=== PATIENT | male | born 1975 | race American Indian/Alaskan Native ===

== ENCOUNTER 2020-03-09 06:15 | Emergency (ER) | payer OTHER ==
--- NOTE | 2020-03-09 06:40 | EDM.PDOC ---
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 He hit the top of his head against the banister. There was no loss of consciousness but he has some pain immediately. While he was walking away from that to go to another part of the plant he began to feel dizzy and developed a headache with some nausea. He also developed some posterior neck pain and pain between the scapula of his upper back as well. He has no arm or leg weakness. He has had no vomiting. The headache has almost resolved.he is rating the pain in his upper back as a 3- 4/10. It is a sore and sharp type pain that is worse with movement and with palpation. No vision problems. He presents here via private vehicle by the health safety and environment manager from [employer]. The patient reports that this occurred approximately 5:30 AM. There are no other associated signs or symptoms. There are no other modifying factors. 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 Restless leg syndrome) - Past Surgical History Other Surgical History Comment: Removal of neurofibroma from his left upper arm. Social & Family History - Tobacco Use Tobacco Use Status *Q: Current Every Day Tobacco User - Alcohol Use Alcohol Use History: Yes Alcohol Use in Last Twelve Months: No Alcohol Use Comment: No alcohol use for the past 19 years. - Living Situation & Occupation Occupation: Employed (Works at [employer].) ED ROS GENERAL - Review of Systems Review Of Systems: See Below Constitutional: Reports: No Symptoms HEENT: Reports: No Symptoms Respiratory: Reports: No Symptoms Cardiovascular: Reports: No Symptoms GI/Abdominal: Reports: Nausea Musculoskeletal: Reports: Neck Pain, Back Pain Neurological: Reports: Headache Psychiatric: Reports: No Symptoms Hematologic/Lymphatic: Reports: No Symptoms Immunologic: Reports: No Symptoms ED EXAM, HEAD INJURY - Physical Exam Exam: See Below Exam Limited By: No Limitations General Appearance: Alert, WD/WN, No Apparent Distress Head: Atraumatic, Normocephalic Nexus Criteria: Posterior, Midline Cervical Tenderness Eyes: Bilateral Eye: EOMI, Normal Inspection Ears: Normal External Exam, Hearing Grossly Normal Nose: Normal Inspection, Normal Mucousa, No Blood Throat/Mouth: Normal Inspection, Normal Oropharynx, Normal Voice, No Airway Compromise Neck: Full Range of Motion, Normal Alignment, Tenderness, Tender Midline Respiratory: No Respiratory Distress, Lungs Clear, Normal Breath Sounds, No Accessory Muscle Use, Chest Non-Tender Cardiovascular: Normal Peripheral Pulses, Regular Rate, Rhythm, No Murmur GI/Abdominal Exam: Normal Bowel Sounds, Soft, Non-Tender, No Mass Back Exam: Vertebral Tenderness (Between scapula. 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, No Motor/Sensory Deficits, Alert, Normal Mood/Affect, Oriented x 3 Skin: Normal Color, Warm/Dry - [place] Coma Score Best Eye Response ([place]): (4) Open Spontaneously Best Verbal Response ([place]): (5) Oriented Best Motor Response (Kris): (6) Obeys Commands Kris Total: 15 Course - Vital Signs Last Recorded V/S: Last Vital Signs Temp 37.1 C 03/09/20 06:20 Pulse 83 03/09/20 06:20 Resp 16 03/09/20 06:20 BP 129/83 03/09/20 06:20 Pulse Ox 95 03/09/20 06:20 - Orders/Labs/Meds Orders: Active Orders 24 hr Category Date Time Status Cervical Spine wo Cont [CT] Stat Exams 03/09/20 06:48 Ordered Head wo Cont [CT] Stat Exams 03/09/20 06:48 Ordered Thoracic Spine 3V [CR] Stat Exams 03/09/20 06:48 Ordered - Radiology Interpretation Free Text/Narrative:: CT scan of the head shows no acute abnormality per the [facility] radiologist. CT scan of the cervical spine shows no acute abnormality per the [facility] radiologist. Thoracic spine series shows no acute abnormality per the [facility] radiologist. - Re-Assessments/Exams Free Text/Narrative Re-Assessment/Exam: 03/09/20 07:40: Patient has remained vitally and neurologically stable. The CT scans of his head and cervical spine were negative and the x-ray of his thoracic spine was negative as well. He does appear to have a mild concussion. He has cervical and thoracic strains otherwise. He can use ibuprofen and Tylenol as needed for pain. No work until 03/10/2020. Departure - Departure Time of Disposition: 07:55 Disposition: Home, Self-Care 01 Condition: Good Clinical Impression: Strain of thoracic spine Head contusion Qualifiers: Encounter type: initial encounter Contusion of head detail: unspecified part of head Qualified Code(s): S00.93XA - Contusion of unspecified part of head, initial encounter Cervical strain Qualifiers: Encounter type: initial encounter Qualified Code(s): S16.1XXA - Strain of muscle, fascia and tendon at neck level, initial encounter Mild concussion Qualifiers: Encounter type: initial encounter Loss of consciousness presence/duration: without LOC Qualified Code(s): S06.0X0A - Concussion without loss of consciousness, initial encounter - Discharge Information Instructions: Head Injury, Adult, [id number], Concussion, Adult, [id number], Muscle Strain Forms: ED Department Discharge, ED Return to Work/School Form Additional Instructions: The CT scans of your head and neck showed no acute abnormality. The x-ray of your upper back showed no fracture or any acute abnormality. You do appear to have a mild concussion. He also have strains of your neck and upper back. You can take ibuprofen and Tylenol as needed for pain. No work until 03/10/2020. Back to the emergency department for marked increase in pain, unrelenting vomiting, arm or leg weakness or any other concerning sign or symptom. Sepsis Event Note (ED) - Focused Exam Vital Signs: Vital Signs Temp Pulse Resp BP Pulse Ox 03/09/20 06:20 37.1 C 83 16 129/83 95 - My Orders Last 24 Hours: My Active Orders 03/09/20 06:48 Cervical Spine wo Cont [CT] Stat Head wo Cont [CT] Stat Thoracic Spine 3V [CR] Stat - Assessment/Plan Last 24 Hours: My Active Orders 03/09/20 06:48 Cervical Spine wo Cont [CT] Stat Head wo Cont [CT] Stat Thoracic Spine 3V [CR] Stat
== END 2020-03-09 08:25 | disposition home or self-care (01) ==
LOC: FB.ED 06:15
DX: S06.0X0A Concussion without loss of consciousness, initial encounter (principal); S16.1XXA Strain of muscle, fascia and tendon at neck level, initial encounter; S29.012A Strain of muscle and tendon of back wall of thorax, initial encounter; F17.200 Nicotine dependence, unspecified, uncomplicated; W22.8XXA Striking against or struck by other objects, initial encounter; Y93.01 Activity, walking, marching and hiking
CPT/HCPCS: 70450; 72072; 72125; 99000; 99284-25

== ENCOUNTER 2020-08-06 03:25 | Emergency (ER) | payer OTHER ==
[2020-08-06] MEDS ORDERED: Alum Hydroxide/Mag Hydroxide 15 ML, Lidocaine 2% 15 ML PO ONE ×4 (03:44→04:02)
--- NOTE | 2020-08-06 03:58 | EDM.PDOC ---
ED HPI GENERAL MEDICAL PROBLEM - General Chief Complaint: Gastrointestinal Problem Stated Complaint: Heartburn Time Seen by Provider: 08/06/20 03:25 Source of Information: Reports: Patient History Limitations: Reports: No Limitations - History of Present Illness INITIAL COMMENTS - FREE TEXT/NARRATIVE: Patient presented to the ED because of epigastric pain which started at 2 am. It's burning,08/19,. there is no N/V/D or constipation. Denies having any urinary symptoms. - Related Data Allergies Allergy/AdvReac Type Severity Reaction Status Date / Time No Known Allergies Allergy Verified 08/06/20 08:39 Home Meds: Home Meds rOPINIRole [Requip] 1 - 2 mg PO BEDTIME PRN 03/09/20 [History] Past Medical History HEENT History: Reports: Other (See Below) Other HEENT History: Wear glasses. Neurological History: Reports: Other (See Below) (Neurofibromatosis. Restless leg syndrome) Other Neuro History: Restless leg syndrome. 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 - Past Surgical History Other Surgical History Comment: Removal of neurofibroma from his left upper arm. Social & Family History - Living Situation & Occupation Occupation: Employed (Works at [email or web address] ED ROS GENERAL - Review of Systems Review Of Systems: See Below Constitutional: Reports: No Symptoms HEENT: Reports: No Symptoms Respiratory: Reports: No Symptoms Cardiovascular: Reports: No Symptoms Endocrine: Reports: No Symptoms GI/Abdominal: Reports: Abdominal Pain Musculoskeletal: Reports: No Symptoms Skin: Reports: No Symptoms Neurological: Reports: No Symptoms Psychiatric: Reports: No Symptoms ED EXAM, GI/ABD - Physical Exam Exam: See Below Exam Limited By: No Limitations General Appearance: Alert, No Apparent Distress Ears: Normal External Exam, Normal Canal Nose: Normal Inspection, Normal Mucosa, No Blood Throat/Mouth: Normal Inspection Head: Atraumatic, Normocephalic Neck: Normal Inspection, Supple, Non-Tender, Full Range of Motion Respiratory/Chest: No Respiratory Distress, Lungs Clear, Normal Breath Sounds, No Accessory Muscle Use, Chest Non-Tender Cardiovascular: Normal Peripheral Pulses, Regular Rate, Rhythm, No Edema, No Gallop, No JVD, No Murmur GI/Abdominal Exam: Normal Bowel Sounds, Soft, No Distention, Other (epigastric tenderness) Back Exam: Normal Inspection #1 Interpretation EKG Date: 08/06/20 Time: 03:32 Rhythm: NSR Rate (Beats/Min): 62 [place]: Normal P-Wave: Present QRS: Normal ST-T: Normal QT: Normal Comparison: NA - No Prior EKG EKG Interpretation Comments: NSR Course - Vital Signs Text/Narrative:: Gi cocktail 2 dose Last Recorded V/S: Last Vital Signs Temp 36.9 C 08/06/20 03:25 Pulse 68 08/06/20 03:45 Resp 14 08/06/20 03:45 BP 145/89 H 08/06/20 03:45 Pulse Ox 99 08/06/20 03:45 - Orders/Labs/Meds Orders: Active Orders 24 hr Category Date Time Status EKG 12 Lead [EK] Routine Ther 08/06/20 03:32 Ordered Meds: Medications Discontinued Medications Generic Name Dose Route Start Last Admin Trade Name Freq PRN Reason Stop Dose Admin Al Hydroxide/Mg Hydroxide 15 0 ml 08/06/20 03:44 08/06/20 03:51 ml/ Lidocaine HCl 15 ml PO 08/06/20 03:45 30 ml ONETIME ONE Administration Al Hydroxide/Mg Hydroxide 15 0 ml 08/06/20 04:02 08/06/20 04:08 ml/ Lidocaine HCl 15 ml PO 08/06/20 04:03 30 ml ONETIME ONE Administration Departure - Departure Time of Disposition: 04:00 Disposition: Home, Self-Care 01 Condition: Good Clinical Impression: GERD (gastroesophageal reflux disease) - Discharge Information Instructions: Gastroesophageal Reflux Disease, Adult, [id number] Referrals: Kartik Hopkins MD [Primary Care Provider] - Forms: ED Department Discharge Additional Instructions: Please read discharge instructions on GERD Read the food nd beverages that can aggravated GERD Take extra strength TUMS, chew and swallow 2-3 tablest as needed for epigastric pain Follow up as needed Sepsis Event Note (ED) - Focused Exam Vital Signs: Vital Signs Temp Pulse Resp BP Pulse Ox 08/06/20 03:45 68 14 145/89 H 99 08/06/20 03:30 64 14 140/91 H 99 08/06/20 03:25 36.9 C 66 14 155/101 H 99 - My Orders Last 24 Hours: My Active Orders 08/06/20 03:32 EKG 12 Lead [EK] Routine - Assessment/Plan Last 24 Hours: My Active Orders 08/06/20 03:32 EKG 12 Lead [EK] Routine
== END 2020-08-06 04:40 | disposition home or self-care (01) ==
LOC: FB.ED 03:25
DX: K21.9 Gastro-esophageal reflux disease without esophagitis (principal)
CPT/HCPCS: 93005; 99284-25; A9270-GY

== ENCOUNTER 2020-11-26 22:55 | Emergency (ER) | payer OTHER ==
--- NOTE | 2020-11-26 23:31 | EDM.PDOC ---
ED HPI GENERAL MEDICAL PROBLEM - General Chief Complaint: General Stated Complaint: feeling sick Time Seen by Provider: 11/26/20 23:05 Source of Information: Reports: Patient, Family History Limitations: Reports: No Limitations - History of Present Illness INITIAL COMMENTS - FREE TEXT/NARRATIVE: c/o myalgias, fever, [facility]UR[facility] and ST for 3d strep and COVID tests were neg in office, given a note to return to work tomorrow altho does not feel up to it lives with his parents who are not ill, father is here works at [employer] has pain in his L calf slight cough, non productive no rhinorrhea, no rash Headache Pain Score (Numeric/FACES): 5 - Related Data Allergies Allergy/AdvReac Type Severity Reaction Status Date / Time No Known Allergies Allergy Verified 11/26/20 23:11 Home Meds: Home Meds rOPINIRole [Requip] 1 - 2 mg PO BEDTIME PRN 03/09/20 [History] Past Medical History HEENT History: Reports: Other (See Below) Other HEENT History: Wear glasses. Neurological History: Reports: Other (See Below) Other Neuro History: Restless leg syndrome. 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 - Infectious Disease History Infectious Disease History: Reports: Chicken Pox - Past Surgical History Other Surgical History Comment: Removal of neurofibroma from his left upper arm. Social & Family History - Tobacco Use Tobacco Use Status *Q: Current Every Day Tobacco User Years of Tobacco use: 20 Packs/Tins Daily: 0.5 - Caffeine Use Caffeine Use: Reports: Coffee, Soda - Recreational Drug Use Recreational Drug Use: No - Living Situation & Occupation Occupation: Employed (Works at [employer].) ED ROS GENERAL - Review of Systems Review Of Systems: See Below Constitutional: Reports: Fever, Malaise, Weakness. Denies: Diaphoresis HEENT: Reports: No Symptoms Respiratory: Reports: No Symptoms Cardiovascular: Reports: No Symptoms Endocrine: Reports: No Symptoms GI/Abdominal: Reports: No Symptoms : Reports: No Symptoms Musculoskeletal: Reports: Muscle Pain Skin: Reports: No Symptoms Neurological: Reports: No Symptoms Psychiatric: Reports: No Symptoms Hematologic/Lymphatic: Reports: No Symptoms Immunologic: Reports: No Symptoms ED EXAM, GENERAL - Physical Exam Exam: See Below Exam Limited By: No Limitations General Appearance: Alert, WD/WN, No Apparent Distress, Other (alert, pleasant, nonill, sits and moves easily, slight cough only) Eye Exam: Bilateral Eye: Conjunctival Injection (1+ red b/l without swell or d/c) Ears: Hearing Grossly Normal Nose: Other (slight swell and slight rubra of both nares and o-p) Head: Atraumatic, Normocephalic Neck: Normal Inspection, Supple, Non-Tender, Full Range of Motion. No: Lymphadenopathy (R), Lymphadenopathy (L) Respiratory/Chest: No Respiratory Distress, Lungs Clear, Normal Breath Sounds, Chest Non-Tender Cardiovascular: Regular Rate, Rhythm, No Murmur GI/Abdominal: Soft, Non-Tender Back Exam: Normal Inspection, Full Range of Motion Extremities: Normal Inspection, Normal Range of Motion, Non-Tender Neurological: Alert, Oriented, CN II-XII Intact, Normal Cognition, No Motor/Sensory Deficits Psychiatric: Normal Affect, Normal Mood Skin Exam: Warm, Dry, Intact, Normal Color, No Rash Lymphatic: No Adenopathy Course - Vital Signs Last Recorded V/S: Last Vital Signs Temp 37.2 C 11/26/20 22:55 Pulse 81 11/26/20 22:55 Resp 20 11/26/20 22:55 BP 127/77 11/26/20 22:55 Pulse Ox 97 11/26/20 22:55 - Re-Assessments/Exams Free Text/Narrative Re-Assessment/Exam: 11/26/20 23:33 typical flu-like sxs which have been common in community in children and adults, most pts have run fevers for 5-7 days no complications identified pt not toxic yet too fatigued to work for several days, as precaution given a note to be off work for a full week, although he may be able to return to work as early as Sat (4d from now) Departure - Departure Time of Disposition: 23:25 Disposition: Home, Self-Care 01 Condition: Good Clinical Impression: Flu-like symptoms, Acute viral syndrome - Discharge Information *PRESCRIPTION DRUG MONITORING PROGRAM REVIEWED*: Not Applicable *COPY OF PRESCRIPTION DRUG MONITORING REPORT IN PATIENT MALA: Not Applicable Instructions: Viral Illness, Adult, Influenza, Adult Referrals: PCP,None [Primary Care Provider] - Forms: ED Department Discharge, ED Return to Work/School Form Additional Instructions: For pain and inflammation and fever, take ibuprofen 200 mg 3 tabs and acetaminophen 500 mg 2 tabs with meals and bedtime for 5 days. May take ibuprofen and acetaminophen at the same time. Get adequate rest. Maintain fluids. Return to work in 5 days. Sepsis Event Note (ED) - Focused Exam Vital Signs: Vital Signs Temp Pulse Resp BP Pulse Ox 11/26/20 22:55 37.2 C 81 20 127/77 97
== END 2020-11-26 23:32 | disposition home or self-care (01) ==
LOC: FB.ED 22:55
DX: B34.9 Viral infection, unspecified (principal); M79.662 Pain in left lower leg; Z72.0 Tobacco use
CPT/HCPCS: 99283

== ENCOUNTER 2020-12-01 04:16 | Emergency (ER) | payer OTHER ==
[2020-12-01] MEDS ORDERED: Ondansetron 4 MG Tab.DIS PO ONE ×2 (04:17→07:14)
--- NOTE | 2020-12-01 04:51 | EDM.PDOC ---
ED HPI GENERAL MEDICAL PROBLEM - General Chief Complaint: General Stated Complaint: NAUSEA Time Seen by Provider: 12/01/20 04:30 Source of Information: Reports: Patient - History of Present Illness INITIAL COMMENTS - FREE TEXT/NARRATIVE: 45-year-old gentleman left work and came to the emergency department for evaluation of general illness. He has been to the emergency room on 11/26/2020 and he was tested in his primary care physician's office on 11/25/2020. He was negative for Covid and strep on 11/25. He complains of nausea and vomited one time, and abdominal pain. He points to the suprapubic area states that that is where his pain is. It does not radiate. He took ibuprofen yesterday. He has been drinking electrolyte fluids and water. He ate chicken noodle soup yesterday. He denies rhinorrhea, cough, sick contacts, dysuria, change in bowel or bladder habits. - Related Data Allergies Allergy/AdvReac Type Severity Reaction Status Date / Time No Known Allergies Allergy Verified 11/26/20 23:11 Home Meds: Home Meds rOPINIRole [Requip] 1 - 2 mg PO BEDTIME PRN 03/09/20 [History] Amoxicillin/Potassium Clav [Augmentin 875-125 Tablet] 1 each PO BID #9 tablet 12/01/20 [Rx] Past Medical History HEENT History: Reports: Other (See Below) Other HEENT History: Wear glasses. Neurological History: Reports: Other (See Below) Other Neuro History: Restless leg syndrome. 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 - Infectious Disease History Infectious Disease History: Reports: Chicken Pox - Past Surgical History Other Surgical History Comment: Removal of neurofibroma from his left upper arm. Social & Family History - Caffeine Use Caffeine Use: Reports: Coffee, Soda - Living Situation & Occupation Occupation: Employed (Works at [employer]) ED ROS GENERAL - Review of Systems Review Of Systems: See Below Constitutional: Reports: Chills, Fatigue HEENT: Reports: No Symptoms Respiratory: Reports: No Symptoms Cardiovascular: Reports: No Symptoms Endocrine: Reports: No Symptoms GI/Abdominal: Reports: Abdominal Pain, Nausea, Vomiting : Reports: No Symptoms Musculoskeletal: Reports: No Symptoms Skin: Reports: No Symptoms Neurological: Reports: No Symptoms Psychiatric: Reports: No Symptoms Hematologic/Lymphatic: Reports: No Symptoms Immunologic: Reports: No Symptoms ED EXAM, GENERAL - Physical Exam Exam: See Below Exam Limited By: No Limitations General Appearance: Alert, Anxious Eye Exam: Bilateral Eye: EOMI Head: Atraumatic, Normocephalic Neck: Normal Inspection Respiratory/Chest: No Respiratory Distress, Lungs Clear Cardiovascular: Normal Peripheral Pulses, Regular Rate, Rhythm, No Murmur Peripheral Pulses: 2+: Radial (L), Radial (R), Dorsalis Pedis (L), Dorsalis Pedis (R) GI/Abdominal: Normal Bowel Sounds, Tender, Other (Tenderness to palpation in the suprapubic area) Back Exam: Normal Inspection. No: CVA Tenderness (R), CVA Tenderness (L) Extremities: Normal Inspection, No Pedal Edema Neurological: Alert, Oriented, CN II-XII Intact, Normal Cognition, Normal Gait Psychiatric: Anxious Skin Exam: Other (Widely scattered multiple neurofibromas) Course - Vital Signs Text/Narrative:: Laboratory analysis shows mild leukocytosis. Urinalysis shows likely urinary tract infection. Review of chest x-ray shows possible consolidation of the right middle lobe with peribronchial cuffing. Covid is negative once again. Patient was given 1 L normal saline. Patient was given Augmentin 875/125 orally. A prescription for Augmentin was sent to [facility] pharmacy in [place], [place]. Last Recorded V/S: Last Vital Signs Temp 39.0 C H 12/01/20 05:08 Pulse 107 H 12/01/20 04:27 Resp 18 12/01/20 04:27 BP 120/70 12/01/20 04:27 Pulse Ox 99 12/01/20 04:27 - Orders/Labs/Meds Orders: Active Orders 24 hr Category Date Time Status CXR [Chest 2V] [CR] Stat Exams 12/01/20 04:55 Taken CULTURE URINE [RM] Stat Lab 12/01/20 05:14 Received Sodium Chloride 0.9% [Normal Saline] 1,000 ml Med 12/01/20 05:15 Active IV ASDIRECTED Medication Orders Sodium Chloride (Normal Saline) 1,000 mls @ 999 mls/hr IV ASDIRECTED CHAPO Last Admin: 12/01/20 05:08 Dose: 999 mls/hr Documented by: ELDON Labs: Laboratory Tests 12/01/20 12/01/20 12/01/20 Range/Units 04:54 04:55 04:55 WBC 10.6 H (3.2-10.1) x10-3/uL RBC 5.36 (3.90-5.90) x10(6)uL Hgb 16.7 (12.9-17.7) g/dL Hct 47.6 (38.3-50.1) % MCV 88.9 (80.8-98.7) fL MCH 31.2 (27.0-33.3) pg MCHC 35.1 (28.7-35.3) g/dL RDW 13.3 (12.4-15.0) % Plt Count 234 (117-477) x10(3)uL MPV 7.6 (6.7-11.0) fL Neut % (Auto) 80.3 H (40.3-71.8) % Lymph % (Auto) 8.0 L (15.8-45.3) % [place] % (Auto) 11.0 (5.5-15.2) % Eos % (Auto) 0.2 (0.1-6.8) % Baso % (Auto) 0.5 (0.3-3.8) % Neut # (Auto) 8.5 H (1.7-6.9) x10-3/uL Lymph # (Auto) 0.9 (0.5-4.5) x10-3/uL [place] # (Auto) 1.2 (0.0-1.2) x10-3/uL Eos # (Auto) 0.0 (0.0-0.6) x10-3/uL Baso # (Auto) 0.0 (0.0-0.3) x10-3/uL Sodium 137 (135-145) mmol/L Potassium 3.5 (3.5-5.3) mmol/L Chloride 101 (100-110) mmol/L Carbon Dioxide 22 (21-32) mmol/L BUN 19 H (7-18) mg/dL Creatinine 1.3 (0.70-1.30) mg/dL Est Cr Clr Drug Dosing TNP Estimated GFR (MDRD) 60 (>60) BUN/Creatinine Ratio 14.6 (9-20) Glucose 113 (80-116) mg/dL Calcium 8.4 L (8.6-10.2) mg/dL Total Bilirubin 1.9 H (0.1-1.3) mg/dL AST 40 H (5-25) IU/L ALT 71 H (12-36) U/L Alkaline Phosphatase 81 (56-112) IU/L Total Protein 6.9 (6.0-8.0) g/dL Albumin 3.5 (3.5-5.2) g/dL Globulin 3.4 g/dL Albumin/Globulin Ratio 1.0 Urine Color (YELLOW) Urine Appearance (CLEAR) Urine pH (5.0-6.5) Ur Specific [place] (1.010-1.025) Urine Protein (NEGATIVE) mg/dL Urine Glucose (UA) (NORMAL) mg/dL Urine Ketones (NEGATIVE) mg/dL Urine Occult Blood (NEGATIVE) Urine Nitrite (NEGATIVE) Urine Bilirubin (NEGATIVE) Urine Urobilinogen (NEGATIVE) mg/dL Ur Leukocyte Esterase (NEGATIVE) Urine RBC (0-5) Urine WBC (0-5) Ur Squamous Epith Cells (NS,R,O) Urine Bacteria (NS) Fine Granular Casts (NS) Urine Mucus (NS) SARS-CoV-2 RNA (BJ) Negative (NEGATIVE) 12/01/20 Range/Units 05:14 WBC (3.2-10.1) x10-3/uL RBC (3.90-5.90) x10(6)uL Hgb (12.9-17.7) g/dL Hct (38.3-50.1) % MCV (80.8-98.7) fL MCH (27.0-33.3) pg MCHC (28.7-35.3) g/dL RDW (12.4-15.0) % Plt Count (117-477) x10(3)uL MPV (6.7-11.0) fL Neut % (Auto) (40.3-71.8) % Lymph % (Auto) (15.8-45.3) % [place] % (Auto) (5.5-15.2) % Eos % (Auto) (0.1-6.8) % Baso % (Auto) (0.3-3.8) % Neut # (Auto) (1.7-6.9) x10-3/uL Lymph # (Auto) (0.5-4.5) x10-3/uL [place] # (Auto) (0.0-1.2) x10-3/uL Eos # (Auto) (0.0-0.6) x10-3/uL Baso # (Auto) (0.0-0.3) x10-3/uL Sodium (135-145) mmol/L Potassium (3.5-5.3) mmol/L Chloride (100-110) mmol/L Carbon Dioxide (21-32) mmol/L BUN (7-18) mg/dL Creatinine (0.70-1.30) mg/dL Est Cr Clr Drug Dosing Estimated GFR (MDRD) (>60) BUN/Creatinine Ratio (9-20) Glucose (80-116) mg/dL Calcium (8.6-10.2) mg/dL Total Bilirubin (0.1-1.3) mg/dL AST (5-25) IU/L ALT (12-36) U/L Alkaline Phosphatase (56-112) IU/L Total Protein (6.0-8.0) g/dL Albumin (3.5-5.2) g/dL Globulin g/dL Albumin/Globulin Ratio Urine Color Yellow (YELLOW) Urine Appearance Cloudy (CLEAR) Urine pH 5.0 (5.0-6.5) Ur Specific [place] 1.015 (1.010-1.025) Urine Protein 30 H (NEGATIVE) mg/dL Urine Glucose (UA) Normal (NORMAL) mg/dL Urine Ketones 15 H (NEGATIVE) mg/dL Urine Occult Blood Negative (NEGATIVE) Urine Nitrite Positive H (NEGATIVE) Urine Bilirubin Small H (NEGATIVE) Urine Urobilinogen >=12 H (NEGATIVE) mg/dL Ur Leukocyte Esterase Moderate H (NEGATIVE) Urine RBC 0-5 (0-5) Urine WBC 0-5 (0-5) Ur Squamous Epith Cells Occasional (NS,R,O) Urine Bacteria Moderate H (NS) Fine Granular Casts Occasional H (NS) Urine Mucus Many H (NS) SARS-CoV-2 RNA (BJ) (NEGATIVE) Meds: Medications Generic Name Dose Route Start Last Admin Trade Name Freq PRN Reason Stop Dose Admin Sodium Chloride 1,000 mls @ 999 mls/hr 12/01/20 05:15 12/01/20 05:08 Normal Saline IV 999 mls/hr ASDIRECTED CHAPO Administration Discontinued Medications Generic Name Dose Route Start Last Admin Trade Name Chelly PRN Reason Stop Dose Admin Acetaminophen 650 mg 12/01/20 05:12 12/01/20 05:16 Acetaminophen 325 Mg Tab PO 12/01/20 05:13 650 mg NOW ONE Administration Amoxicillin/Clavulanate Potassium 1 tab 12/01/20 05:52 Amoxicillin/Clavulanate K 875-125 Mg Tab PO 12/01/20 05:53 ONETIME ONE Departure - Departure Time of Disposition: 06:06 Disposition: Home, Self-Care 01 Condition: Good Clinical Impression: Urinary tract infection, Lower respiratory tract infection - Discharge Information *PRESCRIPTION DRUG MONITORING PROGRAM REVIEWED*: Not Applicable *COPY OF PRESCRIPTION DRUG MONITORING REPORT IN PATIENT MALA: Not Applicable Prescriptions: Amoxicillin/Potassium Clav [Augmentin 875-125 Tablet] 1 each PO BID #9 tablet Instructions: Viral Respiratory Infection, [id number], Urinary Tract Infection, Adult, [id number] Referrals: PCP,None [Primary Care Provider] - Forms: ED Department Discharge Additional Instructions: Patient instructed to drink plenty of water to avoid beverages with high caffeine content and high fructose corn syrup. Patient instructed to complete course of antibiotics as directed. Patient instructed to follow-up with his primary care physician this week. Patient was given a note to return to work on 12/05/2020. Sepsis Event Note (ED) - Evaluation Sepsis Screening Result: No Definite Risk - Focused Exam Vital Signs: Vital Signs Temp Temp Pulse Resp BP Pulse Ox 12/01/20 05:08 39.0 C H 12/01/20 04:27 38.1 C 107 H 18 120/70 99 - My Orders Last 24 Hours: My Active Orders 12/01/20 04:55 CXR [Chest 2V] [CR] Stat 12/01/20 05:14 CULTURE URINE [RM] Stat 12/01/20 05:15 Sodium Chloride 0.9% [Normal Saline] 1,000 ml IV ASDIRECTED - Assessment/Plan Last 24 Hours: My Active Orders 12/01/20 04:55 CXR [Chest 2V] [CR] Stat 12/01/20 05:14 CULTURE URINE [RM] Stat 12/01/20 05:15 Sodium Chloride 0.9% [Normal Saline] 1,000 ml IV ASDIRECTED
[2020-12-01] MEDS ORDERED: Acetaminophen 325 MG Tab PO ONE (05:12)
[2020-12-01] MEDS ORDERED: Sodium Chloride 0.9% 1,000 ML IV SCH (05:15)
[2020-12-01] MEDS ORDERED: Amoxicillin/Clavulanate K 875-125 MG Tab PO ONE (05:52)
[2020-12-01] MEDS ORDERED: Ibuprofen 400 MG Tab PO ONE (06:09)
--- NOTE | 2020-12-02 12:50 | CR ---
INDICATION: Fever, cough, vomiting this morning, three-year smoker half pack a day . CHEST TWO VIEWS 38827: PA and lateral views of the chest were obtained 12/01/20 - no comparisons. The heart, mediastinum, and bony thorax were unremarkable. Slightly prominent AP diameter and flattened diaphragm leafs to a mild degree raise question of obstructive airway disease - correlate clinically. Markings are prominent centrally and at the lung bases without a definite consolidating pneumonia or effusion. However, bronchial cuffing is moderate to moderately severe centrally and extending into the lung bases, which may represent active peribronchial disease, either infection or edema or both. This should be correlated clinically. MTDD
== END 2020-12-01 07:20 | disposition home or self-care (01) ==
LOC: FB.ED 04:16
DX: J22 Unspecified acute lower respiratory infection (principal); N39.0 Urinary tract infection, site not specified; Z20.822 Contact with and (suspected) exposure to COVID-19
CPT/HCPCS: 36415; 71046; 80053; 81001; 85025; 87086; 87635; 99284; A9270; J7030; U0002

== ENCOUNTER 2020-12-05 16:40 | Emergency (ER) | payer OTHER ==
[2020-12-05] MEDS ORDERED: Sodium Chloride 0.9% 10 ML Syringe FLUSH PRN (17:17)
[2020-12-05] MEDS ORDERED: Ondansetron 4 MG/2 ML SDV IVPUSH STA (17:22)
[2020-12-05] MEDS ORDERED: Meclizine 25 MG Tab PO STA (17:22)
[2020-12-05] MEDS ORDERED: Sodium Chloride 0.9% 1,000 ML IV SCH (17:30)
[2020-12-05] MEDS ORDERED: Iopamidol 755 Mg/ML 100 ML Bottle IV ONE (17:34)
[2020-12-05] MEDS ORDERED: Pantoprazole 40 MG Vial IVPUSH ONE (18:45)
--- NOTE | 2020-12-05 18:53 | EDM.PDOC ---
ED HPI GENERAL MEDICAL PROBLEM - General Chief Complaint: General Stated Complaint: NAUSEA,VOMITING Time Seen by Provider: 12/05/20 16:45 Source of Information: Reports: Patient History Limitations: Reports: No Limitations - History of Present Illness INITIAL COMMENTS - FREE TEXT/NARRATIVE: Patient presented to the ED because of N/V, epigastric pain,weakness for the past 2 weeks. He was seen in the ED 5 days ago and was diagnosed with UTI treated with augmentin. His N/V persist and is feeling weak and dizzy. He had chills but no fever. No cough/cold symptoms. No urinary symptoms or changes in bowel movement. he was tested for Covid twice-the last one was 12/01 and it's negative.Patient admits of drinking coffee, soda, power drinks daily and likes to eat spicy and greasy foods. Bilateral Lower Back Pain Score (Numeric/FACES): 10 - Related Data Allergies Allergy/AdvReac Type Severity Reaction Status Date / Time No Known Allergies Allergy Verified 11/26/20 23:11 Home Meds: Home Meds rOPINIRole [Requip] 1 - 2 mg PO BEDTIME PRN 03/09/20 [History] Amoxicillin/Potassium Clav [Augmentin 875-125 Tablet] 1 each PO BID #9 tablet 12/01/20 [Rx] Ondansetron [Zofran ODT] 4 mg PO Q4H PRN #7 tab.dis 12/05/20 [Rx] Pantoprazole [ProTONIX] 40 mg PO DAILY #30 tab.cr 12/05/20 [Rx] Past Medical History HEENT History: Reports: Other (See Below) Other HEENT History: Wear glasses. Neurological History: Reports: Other (See Below) Other Neuro History: Restless leg syndrome. 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 - Infectious Disease History Infectious Disease History: Reports: Chicken Pox - Past Surgical History Other Surgical History Comment: Removal of neurofibroma from his left upper arm. Social & Family History - Family History Family Medical History: No Pertinent Family History - Tobacco Use Tobacco Use Status *Q: Current Every Day Tobacco User Years of Tobacco use: 30 Packs/Tins Daily: 0.5 - Caffeine Use Caffeine Use: Reports: Coffee, Energy Drinks, Soda - Recreational Drug Use Recreational Drug Use: No - Living Situation & Occupation Occupation: Employed (Works at [employer] ED ROS GENERAL - Review of Systems Review Of Systems: See Below Constitutional: Reports: No Symptoms HEENT: Reports: No Symptoms Respiratory: Reports: No Symptoms Cardiovascular: Reports: No Symptoms Endocrine: Reports: No Symptoms GI/Abdominal: Reports: Abdominal Pain, Nausea, Vomiting : Reports: No Symptoms Musculoskeletal: Reports: No Symptoms Skin: Reports: No Symptoms Neurological: Reports: No Symptoms Psychiatric: Reports: No Symptoms ED EXAM, GENERAL - Physical Exam Exam: See Below Exam Limited By: No Limitations General Appearance: Alert, No Apparent Distress Ears: Normal External Exam, Normal Canal Nose: Normal Inspection, Normal Mucosa, No Blood Throat/Mouth: Normal Inspection, Normal Lips, Normal Teeth Head: Atraumatic, Normocephalic Neck: Normal Inspection, Supple, Non-Tender, Full Range of Motion Respiratory/Chest: No Respiratory Distress, Lungs Clear, Normal Breath Sounds Cardiovascular: Normal Peripheral Pulses, Regular Rate, Rhythm, No Edema, No Gallop, No JVD, No Murmur, No Rub GI/Abdominal: Normal Bowel Sounds, Soft, Non-Tender, No Organomegaly, No Distention, No Abnormal Bruit, No Mass, Pelvis Stable Back Exam: Normal Inspection, Full Range of Motion Extremities: Normal Inspection, Normal Range of Motion, Non-Tender, No Pedal Edema, Normal Capillary Refill Neurological: Alert, Oriented, CN II-XII Intact, Normal Cognition, Normal Reflexes, No Motor/Sensory Deficits Psychiatric: Normal Affect Course - Vital Signs Text/Narrative:: Lab/Head and abdominal CT,CXR result was reviewed and discussed with patient NS 1 L bolus Zofran 4 mg IV x1 Protonix 80 mg IV x1 Meclizine 25 mg PO x1 UTI-resolved Last Recorded V/S: Last Vital Signs Temp 36.6 C 12/05/20 16:45 Pulse 69 12/05/20 16:45 Resp 18 12/05/20 16:45 BP 115/81 12/05/20 16:45 Pulse Ox 96 12/05/20 16:45 - Orders/Labs/Meds Orders: Active Orders 24 hr Category Date Time Status CULTURE BLOOD [BC] Urgent Lab 12/05/20 17:30 Received CULTURE BLOOD [BC] Urgent Lab 12/05/20 17:35 Received Blood Culture x2 Reflex Set [OM.PC] Urgent Oth 12/05/20 17:21 Ordered Isolation [COMM] Routine Oth 12/05/20 17:20 Ordered Saline Lock Insert [OM.PC] Routine Oth 12/05/20 17:17 Ordered Labs: Laboratory Tests 12/05/20 12/05/20 12/05/20 Range/Units 17:30 17:30 17:30 WBC 9.1 (3.2-10.1) x10-3/uL RBC 4.82 (3.90-5.90) x10(6)uL Hgb 15.1 (12.9-17.7) g/dL Hct 43.5 (38.3-50.1) % MCV 90.3 (80.8-98.7) fL MCH 31.4 (27.0-33.3) pg MCHC 34.8 (28.7-35.3) g/dL RDW 13.0 (12.4-15.0) % Plt Count 383 (117-477) x10(3)uL MPV 6.9 (6.7-11.0) fL Neut % (Auto) 71.9 H (40.3-71.8) % Lymph % (Auto) 12.8 L (15.8-45.3) % Yell % (Auto) 14.2 (5.5-15.2) % Eos % (Auto) 0.7 (0.1-6.8) % Baso % (Auto) 0.4 (0.3-3.8) % Neut # (Auto) 6.5 (1.7-6.9) x10-3/uL Lymph # (Auto) 1.2 (0.5-4.5) x10-3/uL Yell # (Auto) 1.3 H (0.0-1.2) x10-3/uL Eos # (Auto) 0.1 (0.0-0.6) x10-3/uL Baso # (Auto) 0.0 (0.0-0.3) x10-3/uL Sodium 141 (135-145) mmol/L Potassium 3.6 (3.5-5.3) mmol/L Chloride 107 D (100-110) mmol/L Carbon Dioxide 22 (21-32) mmol/L BUN 18 (7-18) mg/dL Creatinine 0.9 (0.70-1.30) mg/dL Est Cr Clr Drug Dosing TNP Estimated GFR (MDRD) > 60 (>60) BUN/Creatinine Ratio 20.0 (9-20) Glucose 82 (80-116) mg/dL Lactic Acid (0.4-2.0) mmol/L Calcium 8.2 L (8.6-10.2) mg/dL Total Bilirubin 0.7 (0.1-1.3) mg/dL AST 8 D (5-25) IU/L ALT 26 D (12-36) U/L Alkaline Phosphatase 69 (56-112) IU/L C-Reactive Protein 2.4 H (0.5-0.9) mg/dL Total Protein 6.4 (6.0-8.0) g/dL Albumin 2.8 L (3.5-5.2) g/dL Globulin 3.6 g/dL Albumin/Globulin Ratio 0.8 Amylase 34 (25-115) U/L Lipase 56 L (73-393) U/L TSH, Ultra Sensitive (0.36-3.74) IU/mL Urine Color (YELLOW) Urine Appearance (CLEAR) Urine pH (5.0-6.5) Ur Specific [place] (1.010-1.025) Urine Protein (NEGATIVE) mg/dL Urine Glucose (UA) (NORMAL) mg/dL Urine Ketones (NEGATIVE) mg/dL Urine Occult Blood (NEGATIVE) Urine Nitrite (NEGATIVE) Urine Bilirubin (NEGATIVE) Urine Urobilinogen (NEGATIVE) mg/dL Ur Leukocyte Esterase (NEGATIVE) U Hyaline Cast (Auto) (NS) Urine RBC (0-5) Urine WBC (0-5) Ur Squamous Epith Cells (NS,R,O) Urine Bacteria (NS) 12/05/20 12/05/20 12/05/20 Range/Units 17:30 17:30 18:11 WBC (3.2-10.1) x10-3/uL RBC (3.90-5.90) x10(6)uL Hgb (12.9-17.7) g/dL Hct (38.3-50.1) % MCV (80.8-98.7) fL MCH (27.0-33.3) pg MCHC (28.7-35.3) g/dL RDW (12.4-15.0) % Plt Count (117-477) x10(3)uL MPV (6.7-11.0) fL Neut % (Auto) (40.3-71.8) % Lymph % (Auto) (15.8-45.3) % Yell % (Auto) (5.5-15.2) % Eos % (Auto) (0.1-6.8) % Baso % (Auto) (0.3-3.8) % Neut # (Auto) (1.7-6.9) x10-3/uL Lymph # (Auto) (0.5-4.5) x10-3/uL Yell # (Auto) (0.0-1.2) x10-3/uL Eos # (Auto) (0.0-0.6) x10-3/uL Baso # (Auto) (0.0-0.3) x10-3/uL Sodium (135-145) mmol/L Potassium (3.5-5.3) mmol/L Chloride (100-110) mmol/L Carbon Dioxide (21-32) mmol/L BUN (7-18) mg/dL Creatinine (0.70-1.30) mg/dL Est Cr Clr Drug Dosing Estimated GFR (MDRD) (>60) BUN/Creatinine Ratio (9-20) Glucose (80-116) mg/dL Lactic Acid 1.0 (0.4-2.0) mmol/L Calcium (8.6-10.2) mg/dL Total Bilirubin (0.1-1.3) mg/dL AST (5-25) IU/L ALT (12-36) U/L Alkaline Phosphatase (56-112) IU/L C-Reactive Protein (0.5-0.9) mg/dL Total Protein (6.0-8.0) g/dL Albumin (3.5-5.2) g/dL Globulin g/dL Albumin/Globulin Ratio Amylase (25-115) U/L Lipase (73-393) U/L TSH, Ultra Sensitive 1.35 (0.36-3.74) IU/mL Urine Color [place] (YELLOW) Urine Appearance Clear (CLEAR) Urine pH 5.0 (5.0-6.5) Ur Specific [place] 1.020 (1.010-1.025) Urine Protein Negative (NEGATIVE) mg/dL Urine Glucose (UA) Normal (NORMAL) mg/dL Urine Ketones 15 H (NEGATIVE) mg/dL Urine Occult Blood Negative (NEGATIVE) Urine Nitrite Negative (NEGATIVE) Urine Bilirubin Small H (NEGATIVE) Urine Urobilinogen 8 H (NEGATIVE) mg/dL Ur Leukocyte Esterase Negative (NEGATIVE) U Hyaline Cast (Auto) Few H (NS) Urine RBC 0-5 (0-5) Urine WBC 0-5 (0-5) Ur Squamous Epith Cells Few H (NS,R,O) Urine Bacteria Few H (NS) Meds: Medications Discontinued Medications Generic Name Dose Route Start Last Admin Trade Name Freq PRN Reason Stop Dose Admin Sodium Chloride 1,000 mls @ 999 mls/hr 12/05/20 17:30 12/05/20 18:37 Normal Saline IV 999 mls/hr ASDIRECTED CHAPO Administration Iopamidol 100 ml 12/05/20 17:34 12/05/20 18:02 Iopamidol 755 Mg/Ml 100 Ml Bottle IV 12/05/20 17:35 100 ml . DIRECTED ONE Administration Meclizine HCl 25 mg 12/05/20 17:22 12/05/20 18:37 Meclizine 25 Mg Tab PO 12/05/20 17:23 25 mg NOW STA Administration Ondansetron HCl 4 mg 12/05/20 17:22 12/05/20 18:37 Ondansetron 4 Mg/2 Ml Sdv IVPUSH 12/05/20 17:23 4 mg NOW STA Administration Pantoprazole Sodium 80 mg 12/05/20 18:45 12/05/20 19:01 Pantoprazole 40 Mg Vial IVPUSH 12/05/20 18:46 80 mg ONETIME ONE Administration Sodium Chloride 10 ml 12/05/20 17:17 Sodium Chloride 0.9% 10 Ml Syringe FLUSH ASDIRECTED PRN Keep Vein Open Departure - Departure Time of Disposition: 20:00 Disposition: Home, Self-Care 01 Condition: Good Clinical Impression: GERD (gastroesophageal reflux disease), UTI (urinary tract infection) - Discharge Information Prescriptions: Pantoprazole [ProTONIX] 40 mg PO DAILY #30 tab.cr Ondansetron [Zofran ODT] 4 mg PO Q4H PRN #7 tab.dis PRN Reason: Nausea Instructions: Food Choices for Gastroesophageal Reflux Disease, Adult, Gastroesophageal Reflux Disease, Adult, [id number] Referrals: Akbar Briones MD [Primary Care Provider] - Forms: ED Department Discharge Additional Instructions: Please read discharge instructions on GERD and read in detail the food and beverages that you need to avoid so your acid reflux can be controlled with the medication Zofran ODT 4 mg every 4 hours as needed for nausea/vomiting Pantoprazole 40 mg daily Follow up with your doctor in a week Sepsis Event Note (ED) - Evaluation Sepsis Screening Result: No Definite Risk - My Orders Last 24 Hours: My Active Orders 12/05/20 17:17 Saline Lock Insert [OM.PC] Routine 12/05/20 17:20 Isolation [COMM] Routine 12/05/20 17:21 Blood Culture x2 Reflex Set [OM.PC] Urgent 12/05/20 17:30 CULTURE BLOOD [BC] Urgent 12/05/20 17:35 CULTURE BLOOD [BC] Urgent - Assessment/Plan Last 24 Hours: My Active Orders 12/05/20 17:17 Saline Lock Insert [OM.PC] Routine 12/05/20 17:20 Isolation [COMM] Routine 12/05/20 17:21 Blood Culture x2 Reflex Set [OM.PC] Urgent 12/05/20 17:30 CULTURE BLOOD [BC] Urgent 12/05/20 17:35 CULTURE BLOOD [BC] Urgent
--- NOTE | 2020-12-05 18:58 | CT ---
INDICATION: Altered level of consciousness/confusion. CT HEAD WITHOUT CONTRAST: Spiral 3.75 mm axial sections were obtained through the brain without contrast with axial, sagittal and coronal reconstructions 12/05/20 and compared with 03/09/20. TOTAL EXAM DLP: 1348.07 mGy/cm. The paranasal sinuses are again well aerated, except for one right-sided posterior ethmoidal air cell, which was opacified, as before. The remainder of the paranasal sinuses and mastoid air cells were well aerated. No cranial abnormality was identified. No shift of midline structures, ventricular abnormalities or abnormal densities were identified. No hematoma or hemorrhage was seen. The levine-white matter interface was well visualized. The orbits appeared to be intact. IMPRESSION: Essentially normal CT brain without contrast. Report was called to Dr. Collins at 1830 hours, 12/05/20. [facility]
--- NOTE | 2020-12-05 19:14 | CT ---
INDICATION: Bilateral flank pain. CT ABDOMEN AND PELVIS WITH CONTRAST: Spiral 3.75 mm axial sections were obtained through the abdomen and pelvis with 100 mL Isovue-370 at 2 mL/second with sagittal and coronal reconstructions 12/05/20 - no comparisons. TOTAL EXAM DLP: 437.60 mGy/cm. The lungs appear to have interstitial changes, suggesting either lung edema or infection or simply poor aeration. There are emphysematous changes noted. Findings may be on the basis of lobar emphysema. The heart did not appear enlarged. No pericardial effusion was seen. The liver had a normal appearance, except for what appears to be a simple cyst in the right lobe inferomedially. No gallstones were demonstrated. The adrenal glands appeared normal. The spleen and pancreas appeared normal. No biliary ductal dilatation was seen. A horseshoe kidney is noted with fusion of the lower poles of the kidneys anteriorly - anterior to the IVC and aorta. No renal mass was identified. No definite obstructive uropathy was seen. No retroperitoneal mass was identified. The appendix appeared normal, visualized on coronal images 46 through 54 and on axial images 61 through 73. No evidence of free air or bowel obstruction was noted. The urinary bladder appeared normal. No additional mass lesions, organomegaly or free fluid collections were identified in the abdomen or pelvis. Soft tissue densities are noted that appear to be cutaneous and subcutaneous in the left anterior abdominal wall at the level of the upper pelvis on axial images 67 through 72. Etiology is indeterminate. Cannot exclude infection in these areas. A similar lesion is noted, which appears cutaneous, on axial image 59 in the right lateral anterior abdominal wall. A larger cutaneous mass extending beyond the skin and into the subcutaneous tissues is noted on axial image 51 in the right anterior abdomen with additional smaller lesions scattered throughout the anterior abdominal wall. No additional mass lesions are noted in the abdomen or pelvis - no free fluid collections or organomegaly was seen. IMPRESSION: 1. Horseshoe kidneys. 2. Numerous cutaneous masses in the anterior abdominal wall with some lesions posteriorly also noted and also laterally, especially in the left flank, but also seen in the right flank laterally and posteriorly. 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 There appeared to be a few cutaneous lesions in the scalp, which would also be compatible with neurofibromatosis. 3. CT abdomen and pelvis with IV contrast otherwise unremarkable. Report was called to Dr. Collins at 1830 hours, 12/05/20. MTDD
--- NOTE | 2020-12-05 19:24 | CR ---
INDICATION: Persistent nausea and vomiting. CHEST, ONE VIEW: Portable AP upright view of the chest 12/05/20 was compared with 12/01/20. No significant interval change or new acute process was identified. There is, however, now noted supraclavicular nodularity, which could be in the patient's skin and compatible with the patient's history of neurofibromatosis. Smaller similar lesions are scattered about the soft tissues of the thorax. No gross consolidating pneumonia or effusion was seen. Heart remains normal in size and shape. IMPRESSION: Stable chest. No definite acute process - no findings to strongly suggest pneumonia or pleuritis could be identified. MTDD
== END 2020-12-05 19:32 | disposition home or self-care (01) ==
LOC: FB.ED 16:40
DX: N39.0 Urinary tract infection, site not specified (principal); K21.9 Gastro-esophageal reflux disease without esophagitis; Z72.0 Tobacco use; Z79.899 Other long term (current) drug therapy
CPT/HCPCS: 36415; 70450; 71045; 74177; 80053; 81001; 82150; 83605; 83690; 84443; 85025; 86140; 87040; 87804; 96374; 96375; 99284; A9270; C9113; J2405; J7030; Q9967

== ENCOUNTER 2021-04-27 20:37 | Emergency (ER) | payer OTHER ==
[2021-04-27] MEDS ORDERED: Lactated Ringers 1,000 ML IV ONE (20:43)
[2021-04-27] MEDS ORDERED: diphenhydrAMINE 50 MG/ML SDV IVPUSH ONE (20:47)
[2021-04-27] MEDS ORDERED: Prochlorperazine 10 MG/2 ML SDV IVPUSH ONE (20:48)
[2021-04-27] MEDS ORDERED: Ketorolac 30 MG/ML SDV IVPUSH ONE (20:48)
[2021-04-27] MEDS ORDERED: Ketorolac 30 MG/ML SDV IM ONE (21:53)
== END 2021-04-27 22:06 | disposition home or self-care (01) ==
LOC: FB.ED 20:37
DX: M79.89 Other specified soft tissue disorders (principal)
CPT/HCPCS: 96372; 99283; 99284; J1885

== ENCOUNTER 2021-10-20 10:34 | Emergency (ER) | payer OTHER ==
[2021-10-20] MEDS ORDERED: Lidocaine 2% 20 ML MDV INFILT ONE (10:35)
[2021-10-20] MEDS ORDERED: Diphtheria,Pertussis(Acell),Tetanus Vaccine 0.5 ML Syringe IM ONE (11:20)
== END 2021-10-20 11:44 | disposition home or self-care (01) ==
LOC: FB.ED 10:34
DX: S61.012A Laceration without foreign body of left thumb without damage to nail, initial encounter (principal); Z79.899 Other long term (current) drug therapy; Z23 Encounter for immunization; W23.1XXA Caught, crushed, jammed, or pinched between stationary objects, initial encounter
CPT/HCPCS: 12002; 73130-LT; 90471; 90715; 99283-25

== ENCOUNTER 2022-10-15 03:09 | Emergency (ER) | payer OTHER ==
[2022-10-15] MEDS ORDERED: Ketorolac 30 MG/ML SDV IM ONE (03:45)
[2022-10-15] MEDS ORDERED: Acetaminophen/HYDROcodone 325-5 MG Tab PO ONE (03:45)
[2022-10-15] MEDS ORDERED: Diazepam 2 MG Tab PO ONE (03:45)
== END 2022-10-15 04:15 | disposition home or self-care (01) ==
LOC: FB.ED 03:09
DX: S39.012A Strain of muscle, fascia and tendon of lower back, initial encounter (principal); M62.830 Muscle spasm of back; Z87.891 Personal history of nicotine dependence
CPT/HCPCS: 96372; 99283; A9270-GY; J1885

== ENCOUNTER 2023-06-29 06:46 | Day surgery (SDC) | payer OTHER ==
[2023-06-29] MEDS ORDERED: Propofol 200 MG/20 ML SDV IV ONE (06:47)
[2023-06-29] MEDS ORDERED: Midazolam 1 MG/ML 2 ML SDV IV ONE (06:47)
[2023-06-29] MEDS ORDERED: Sodium Chloride 0.9% 10 ML Syringe FLUSH PRN (07:00)
[2023-06-29] MEDS: Lactated Ringers 1,000 ML IV SCH (08:07)
== END 2023-06-29 09:52 | disposition home or self-care (01) ==
LOC: FB.SDS 06:46
PROVIDERS: ATTEND Surgery
DX: K57.30 Diverticulosis of large intestine without perforation or abscess without bleeding (principal); R10.32 Left lower quadrant pain; Q85.00 Neurofibromatosis, unspecified; Z79.899 Other long term (current) drug therapy; Z80.0 Family history of malignant neoplasm of digestive organs; Z87.891 Personal history of nicotine dependence
CPT/HCPCS: 00812; J2250; J2704; J7120

== ENCOUNTER 2024-12-09 07:34 | Emergency (ER) | payer OTHER ==
[2024-12-09] MEDS ORDERED: Sodium Chloride 0.9% 10 ML Syringe FLUSH PRN (08:19)
[2024-12-09] MEDS: diphenhydrAMINE 50 MG/ML SDV IVPUSH ONE (08:25)
[2024-12-09] MEDS: Ondansetron 4 MG/2 ML SDV IVPUSH ONE (08:25)
[2024-12-09] MEDS: Ketorolac 30 MG/ML SDV IVPUSH ONE (08:25)
[2024-12-09 08:33] LABS: MEAN PLATELET VOLUME 8.4 fL (6.7-11.0); PLATELET COUNT,PLT 241 x10(3)uL (117-477); RED BLOOD CELL COUNT 5.11 x10(6)uL (3.90-5.90); RED CELL DISTRIBUTION WIDTH 13.4 % (12.4-15.0); WHITE BLOOD CELL COUNT,WBC 16.6 x10-3/uL (3.2-10.1)
[2024-12-09 08:37] LABS: BLOOD UREA NITROGEN,BUN 19 mg/dL (7-18); CARBON DIOXIDE,CO2 23 mmol/L (21-32); CHLORIDE,CL 100 mmol/L (100-110); CREATININE 1.1 mg/dL (0.70-1.30); EST CRCL DRUG DOSING (CG) 71.44 mL/min; ESTIMATED GFR 83 mL/min (>60); GLUCOSE RANDOM 130 mg/dL (80-116); POTASSIUM,K 3.7 mmol/L (3.5-5.3); SODIUM,NA 135 mmol/L (135-145)
[2024-12-09 08:43] LABS: A/G RATIO 0.7; ALANINE AMINOTRANSFERASE,ALT 31 U/L (12-36); ASPARTATE AMNIOTRANSFERASE,AST 15 IU/L (5-25); BILIRUBIN TOTAL 2.2 mg/dL (0.1-1.3); LYMPHOCYTES PERCENT MAN 4 % (13-37); MONOCYTES PERCENT MAN 8 % (4-12); PROTEIN TOTAL,TP 7.7 g/dL (6.0-8.0); SEG NEUTROPHILS PERCENT MAN 88 % (46-82)
== END 2024-12-09 09:57 | disposition home or self-care (01) ==
LOC: FB.ED 07:34
DX: G43.909 Migraine, unspecified, not intractable, without status migrainosus (principal); J01.90 Acute sinusitis, unspecified; E66.9 Obesity, unspecified; Z79.899 Other long term (current) drug therapy; Z87.891 Personal history of nicotine dependence; Z68.34 Body mass index [BMI] 34.0-34.9, adult
CPT/HCPCS: 36415; 80053; 85025; 86140; 96361; 96374; 96375; 99283; J0696; J1200; J1885; J2405; J7030